=== PATIENT | male | born 1950 | race Caucasian/White ===

== ENCOUNTER 2019-03-17 | Emergency (ER) | payer MEDICARE, OTHER ==
[2019-03-17] MEDS ORDERED: KEFLEX500 M1 PO ×2 (17:04)
== END 2019-03-17 17:18 | disposition home or self-care (01) ==
DX: L03.115 Cellulitis of right lower limb (principal); G62.9 Polyneuropathy, unspecified; I10 Essential (primary) hypertension

== ENCOUNTER 2019-12-07 17:43 | Emergency (ER) | payer MEDICARE ==
[~2019-12-07] VITALS: Ht 182.9 cm; Wt 80.0 kg
[~2019-12-07 17:43] MED LIST: KEFLEX500 M1 PO
[2019-12-07 18:22] LABS: IMMATURE GRANULOCYTES 1.1 % (0.0-5.0); MEAN CORPUSCULAR HGB 29.9 pG CALC (26.0-32.0); MEAN CORPUSCULAR HGB CONC 31.7 g/dL CAL (32.0-36.0); NEUT# 10.96 thou/uL (1.82-7.42); RED BLOOD COUNT 2.78 mill/uL (4.70-6.10); RED CELL DISTRI WIDTH 19.3 % (11.5-15.5)
[2019-12-07 18:34] LABS: HEMATOCRIT 26.2 % (39.0-50.0); HEMOGLOBIN 8.3 g/dl (14.0-18.0); MEAN CELL VOLUME 94.2 fL CALC (80.0-100.0)
[2019-12-07 18:41] LABS: INTERNATIONAL NORMALIZED RATIO 1.3 RATIO (0.7-1.3); PROTHROMBIN TIME 12.6 SECONDS (9.0-12.5)
[2019-12-07] MEDS ORDERED: [UNRECOGNIZED DRUG - OTHER] PO (19:00)
[2019-12-07] MEDS ORDERED: VENELEX EX (19:01)
[2019-12-07] MEDS ORDERED: FUROSEMIDE20 MG PO (19:02)
[2019-12-07] MEDS ORDERED: FONDAPARIN2.5 MG/0.5 (19:02)
[2019-12-07] MEDS ORDERED: LIDOCAINE51 (19:03)
[2019-12-07] MEDS ORDERED: METHOCARBAMOL500 MG PO (19:04)
[2019-12-07] MEDS ORDERED: MIDODRINE HYDRO10 MG PO (19:05)
[2019-12-07] MEDS ORDERED: ZOFRAN4 M1 PO (19:05)
[2019-12-07] MEDS ORDERED: TAB-A-VITE W/1 COMBO (19:06)
[2019-12-07] MEDS ORDERED: SANTYL250 UNIT/G (19:06)
[2019-12-07] MEDS ORDERED: SPIRONOLACTONE25 MG PO (19:06)
[2019-12-07] MEDS ORDERED: TAMSULOSIN HCL0.4 MG PO (19:07)
[2019-12-07] MEDS ORDERED: ASPIRIN81 MG PO (19:07)
[2019-12-07] MEDS ORDERED: JARDIANCE10 MG PO (19:08)
[2019-12-07] MEDS ORDERED: GLIMEPIRIDE2 MG PO (19:09)
[2019-12-07] MEDS ORDERED: LISINOPRIL10 MG PO (19:09)
[2019-12-07] MEDS ORDERED: PREDNISONE10 MG PO (19:10)
[2019-12-07] MEDS ORDERED: PREVALITE4 G1 PO (19:10)
[2019-12-07 19:27] LABS: ALBUMIN 4.8 g/dL (3.2-5.0); ALKALINE PHOSPHATASE 236 u/l (38-126); AMYLASE 318 u/l (30-110); CHLORIDE 94 mmol/l (95-108); LIPASE 1069 u/l (23-300); SODIUM 130 mmol/l (137-146); TOTAL PROTEIN 7.7 g/dL (6.3-8.2)
[2019-12-07 19:31] VITALS: BP 108/68
[2019-12-07 19:31] LABS: ANION GAP 26 (6-22 (CALC)); BUN/CREATININE RATIO 45 (12-20 (CALC)); CARBON DIOXIDE 15 mmol/l (22-30); CREATININE 2.2 mg/dL (0.7-1.3); GFR 30 ML/MIN (>=60 (CALC)); GFR FOR AFR.AMER. 36 ML/MIN (>=60 (CALC)); POTASSIUM 5.4 mmol/l (3.5-5.1); SGOT/AST 30 u/l (19-48)
[2019-12-07 19:32] LABS: BUN 100 mg/dL (8-23)
[2019-12-07 19:38] VITALS: BP 99/69
[2019-12-07 19:38] LABS: MYOGLOBIN 91 ng/mL (0 - 121)
[2019-12-07 19:48] VITALS: BP 99/74
[2019-12-07 20:13] VITALS: BP 99/69
[2019-12-07 21:07] VITALS: BP 99/69
== END 2019-12-07 20:40 | disposition short-term general hospital (02) ==
LOC: ED 17:43
PROVIDERS: Emergency Medicine
PROC: 30233N1 Transfusion of Nonautologous Red Blood Cells into Peripheral Vein, Percutaneous Approach (ICD-10-PCS; principal; 2019-12-07)
DX: A41.9 Sepsis, unspecified organism (principal); R65.20 Severe sepsis without septic shock; K92.1 Melena; K85.90 Acute pancreatitis without necrosis or infection, unspecified; N17.9 Acute kidney failure, unspecified; E87.5 Hyperkalemia; K83.8 Other specified diseases of biliary tract; I10 Essential (primary) hypertension; G62.9 Polyneuropathy, unspecified; R73.03 Prediabetes; Z90.89 Acquired absence of other organs; Z20.828 Contact with and (suspected) exposure to other viral communicable diseases
CPT/HCPCS: P9016; S0164